=== PATIENT | female | born 1980 | race African-American/Black ===

== ENCOUNTER 2021-03-09 00:06 | Emergency (ER) | payer MEDICARE, MEDICAID ==
[~2021-03-09] VITALS: Ht 165.1 cm; Wt 101.0 kg
[~2021-03-09 00:06] MED LIST: (None)1 % OP; ACCUPRIL5 MG; AMOXICILLIN500 M2 PO; BACTRIM DS1 TAB OR; BACTRIM DS1 TAB PO; BIAXIN250 MG PO; CEPHALEXIN500 MG PO; COMBIVIR 1501 COMBO PO; EFFEXOR XR75 MG PO; EFFEXOR25 MG PO; FAMVIR500 MG PO; FLEXERIL PO; LEXAPRO5 MG OR; LORTAB 1010 MG PO; LORTAB 5 OR; LORTAB5 OR; LORTAB5 PO; LYRICA300 MG PO; LYRICA50 MG PO; NAPROSYN500 MG OR; NAPROSYN500 MG PO; NEURONTIN100 MG PO; NEXIUM20 M1 OR; NORCO1 TA1 PO; NORVIR100 MG PO; PERCOCET 5/325M1 TAB PO; PREZISTA800 MG PO; RISPERDAL M1 MG PO; RISPERDAL0.5 MG PO; RISPERDAL2 MG PO; RISPERDAL3 MG OR; ROCEPHIN 1 GM1 GM IV; SEROQUEL50 MG PO; SUSTIVA200 MG OR; TRUVADA PO; ULTRAM50 M1 OR; ULTRAM50 M1 PO; ULTRAM50 MG OR; VIBRAMYCIN100 MG PO; XANAX0.25 MG PO; ZOVIRAX51 EX; [UNRECOGNIZED DRUG - OTHER] OR
[2021-03-09 00:57] LABS: HEMATOCRIT 36.1 % (37.0-47.0); HEMOGLOBIN 12.8 g/dl (12.0-16.0); MEAN CELL VOLUME 92.8 fL CALC (80.0-100.0); MEAN CORPUSCULAR HGB 32.9 pG CALC (26.0-32.0); MEAN CORPUSCULAR HGB CONC 35.5 g/dL CAL (32.0-36.0); NEUT# 2.24 thou/uL (2.00-7.15); RED BLOOD COUNT 3.89 mill/uL (4.20-5.60); RED CELL DISTRI WIDTH 12.1 % (11.5-15.5)
[2021-03-09 01:12] LABS: ALKALINE PHOSPHATASE 58 u/l (38-126); ANION GAP 13 (6-22 (CALC)); BILIRUBIN, TOTAL 0.3 mg/dL (0.0-1.4); BUN 15 mg/dL (7-17); BUN/CREATININE RATIO 15 (12-20 (CALC)); CARBON DIOXIDE 24 mmol/l (22-30); CHLORIDE 103 mmol/l (95-108); GFR > 60 ML/MIN (>=60 (CALC)); GFR FOR AFR.AMER. > 60 ML/MIN (>=60 (CALC)); POTASSIUM 3.7 mmol/l (3.5-5.1); SGOT/AST 27 u/l (14-36); SODIUM 136 mmol/l (137-146); TOTAL PROTEIN 7.5 g/dL (6.3-8.2)
[2021-03-09 03:41] LABS: URINE BILIRUBIN - DIPSTICK NEGATIVE (NEGATIVE); URINE BLOOD DIPSTICK NEGATIVE (NEGATIVE); URINE COLOR YELLOW; URINE GLUCOSE - DIPSTICK NEGATIVE (NEGATIVE); URINE KETONE TRACE mg/dL (NEGATIVE); URINE LEUK ESTERASE NEGATIVE (NEGATIVE); URINE PH 5.5 (4.5-8.0); URINE PROTEIN - DIPSTICK NEGATIVE (NEG-TRACE); URINE SPECIFIC GRAVITY >=1.030; URINE UROBILINOGEN - DIPSTICK 0.2 E.U./dL (0.2)
[2021-03-09 03:51] LABS: URINE NITRITE - DIPSTICK NEGATIVE (Negative)
[2021-03-09 05:10] VITALS: BP 112/76
[2021-03-09] MEDS ORDERED: ZPAK PO (05:10)
[2021-03-09] MEDS ORDERED: ROBITUSSIN AC10 ML PO (05:14)
[2021-03-09] MEDS ORDERED: PROVENTIL HFA IN (05:14)
== END 2021-03-09 05:10 | disposition home or self-care (01) ==
LOC: ED 00:06
PROVIDERS: Emergency Medicine
DX: J40 Bronchitis, not specified as acute or chronic (principal); Z21 Asymptomatic human immunodeficiency virus [HIV] infection status; Z20.822 Contact with and (suspected) exposure to COVID-19
CPT/HCPCS: Q9967

== ENCOUNTER 2022-11-10 21:23 | Emergency (ER) | payer MEDICARE, MEDICAID ==
[~2022-11-10] VITALS: Ht 165.1 cm; Wt 96.0 kg
[~2022-11-10 21:23] MED LIST changes: +PROVENTIL HFA IN; +ROBITUSSIN AC10 ML PO; +ZPAK PO
[2022-11-10 23:25] LABS: ALBUMIN 4.4 g/dL (3.2-5.0); ALKALINE PHOSPHATASE 87 u/l (38-126); ANION GAP 14 (6-22 (CALC)); BUN 12 mg/dL (7-17); BUN/CREATININE RATIO 13 (12-20 (CALC)); CARBON DIOXIDE 23 mmol/l (22-30); CHLORIDE 103 mmol/l (95-108); CREATININE 0.9 mg/dL (0.5-1.0); GFR FOR AFR.AMER. > 60 ML/MIN (>=60 (CALC)); GFR OTHER RACES > 60 ML/MIN (>=60 (CALC)); LIPASE 31 u/l (23-300); POTASSIUM 3.5 mmol/l (3.5-5.1); SGOT/AST 27 u/l (14-36); SODIUM 136 mmol/l (137-146)
[2022-11-11] MEDS ORDERED: ZOFRAN4 MG/TAB PO (00:07)
[2022-11-11 00:14] LABS: BASO% 0.4 % (0-3); HEMATOCRIT 40.3 % (37.0-47.0); HEMOGLOBIN 14.1 g/dl (12.0-16.0); IMMATURE GRANULOCYTES 0.2 % (0.0-5.0); LYMPH% 30.3 % (15-41); MEAN CELL VOLUME 92.9 fL CALC (80.0-100.0); MEAN CORPUSCULAR HGB 32.5 pG CALC (26.0-32.0); MONO% 9.2 % (2-13); NEUT# 2.49 thou/uL (2.00-7.15); NEUT% 55.9 % (42-76); RED BLOOD COUNT 4.34 mill/uL (4.20-5.60); RED CELL DISTRI WIDTH 12.2 % (11.5-15.5)
[2022-11-11 00:17] VITALS: BP 131/86
== END 2022-11-11 00:20 | disposition home or self-care (01) ==
LOC: ED 21:23
PROVIDERS: Emergency Medicine
DX: R11.10 Vomiting, unspecified (principal); Z21 Asymptomatic human immunodeficiency virus [HIV] infection status
CPT/HCPCS: J2060

== ENCOUNTER 2024-02-21 00:47 | Emergency (ER) | payer MEDICARE ==
[~2024-02-21] VITALS: Ht 165.1 cm; Wt 104.0 kg
[~2024-02-21 00:47] MED LIST changes: +AMOX/K CLAV875 M1 PO; +LORTAB 5/3255 MG PO; +ZOFRAN4 MG/TAB PO
[2024-02-21] MEDS ORDERED: Acetaminophen 300 MG/Codeine 30 MG/COMBO PO ONE (01:05)
[2024-02-21] MEDS ORDERED: DICLOFENAC SODIUM 75 MG/TAB PO ONE (01:05)
[2024-02-21] MEDS ORDERED: AMOXICILLIN & POT CLAVULANATE 875 MG/TAB PO ONE (01:05)
[2024-02-21] MEDS ORDERED: AMOX/K CLAV875 M1 PO (01:06)
[2024-02-21 01:26] VITALS: BP 119/83
== END 2024-02-21 01:26 | disposition home or self-care (01) ==
LOC: ED 00:47
DX: J01.90 Acute sinusitis, unspecified (principal); H69.91 Unspecified Eustachian tube disorder, right ear; Z21 Asymptomatic human immunodeficiency virus [HIV] infection status; Z79.899 Other long term (current) drug therapy; Z72.0 Tobacco use

== ENCOUNTER 2024-07-19 19:33 | Emergency (ER) | payer MEDICARE ==
[~2024-07-19] VITALS: Ht 165.1 cm; Wt 105.0 kg
[2024-07-19 19:46] VITALS: BP 128/77
[2024-07-19 20:01] VITALS: BP 134/74
[2024-07-19] MEDS ORDERED: Pantoprazole Sodium 40 MG VIAL (Protonix) IV ONE (20:05)
[2024-07-19] MEDS ORDERED: ASPIRIN 81 MG/TAB PO ONE (20:05)
[2024-07-19] MEDS ORDERED: NITROGLYCERIN 0.4 MG/TAB SL ONE (20:05)
[2024-07-19 20:19] LABS: BASO% 0.6 % (0-3); EOS% 3.2 % (0-8); HEMATOCRIT 37.1 % (37.0-47.0); HEMOGLOBIN 13.1 g/dl (12.0-16.0); IMMATURE GRANULOCYTES 0.4 % (0.0-5.0); LYMPH% 36.1 % (15-41); MEAN CELL VOLUME 96.9 fL CALC (80.0-100.0); MEAN CORPUSCULAR HGB 34.2 pG CALC (26.0-32.0); MEAN CORPUSCULAR HGB CONC 35.3 g/dL CAL (32.0-36.0); MONO% 6.8 % (2-13); NEUT# 2.65 thou/uL (2.00-7.15); NEUT% 52.9 % (42-76); RED BLOOD COUNT 3.83 mill/uL (4.20-5.60); RED CELL DISTRI WIDTH 12.8 % (11.5-15.5)
[2024-07-19 20:30] LABS: ALBUMIN 4.1 g/dL (3.2-5.0); ALKALINE PHOSPHATASE 49 u/l (38-126); ANION GAP 11 (6-22 (CALC)); BUN 16 mg/dL (7-17); BUN/CREATININE RATIO 15 (12-20 (CALC)); CARBON DIOXIDE 24 mmol/l (22-30); CHLORIDE 104 mmol/l (95-108); CREATININE 1.1 mg/dL (0.5-1.0); ESTIMATED GFR 64 ML/MIN (>=90 (CALC)); LIPASE 76 u/l (23-300); POTASSIUM 3.9 mmol/l (3.5-5.1); SGOT/AST 22 u/l (14-36); SODIUM 136 mmol/l (137-146); TOTAL PROTEIN 7.4 g/dL (6.3-8.2)
[2024-07-19 20:31] VITALS: BP 127/79
[2024-07-19 20:33] LABS: BILIRUBIN, TOTAL 0.4 mg/dL (0.02-1.3)
[2024-07-19] MEDS ORDERED: PANTOPRAZOLE SODIUM Sesquihydr 40 MG/TAB PO ONE (20:45)
[2024-07-19 21:10] LABS: URINE BILIRUBIN - DIPSTICK Negative (NEGATIVE); URINE BLOOD DIPSTICK Negative (NEGATIVE); URINE CLARITY Clear; URINE COLOR Yellow; URINE GLUCOSE - DIPSTICK Negative (NEGATIVE); URINE KETONE Negative (NEGATIVE); URINE LEUK ESTERASE Negative (Negative); URINE NITRITE - DIPSTICK Negative (Negative); URINE PH 5.5 (4.5-8.0); URINE PROTEIN - DIPSTICK Negative (NEG-TRACE); URINE UROBILINOGEN - DIPSTICK 0.2 E.U./dL (0.2)
[2024-07-19 21:31] VITALS: BP 125/75
[2024-07-19 22:01] VITALS: BP 109/63
[2024-07-19 22:06] VITALS: BP 109/63
== END 2024-07-19 22:06 | disposition home or self-care (01) ==
LOC: ED 19:33
PROVIDERS: Emergency Medicine
DX: R07.89 Other chest pain (principal); Z21 Asymptomatic human immunodeficiency virus [HIV] infection status; Z72.0 Tobacco use
CPT/HCPCS: J2470

== ENCOUNTER 2024-11-06 17:52 | Emergency (ER) | payer MEDICARE ==
[~2024-11-06] VITALS: Ht 165.1 cm; Wt 107.0 kg
[2024-11-06] MEDS ORDERED: KETOROLAC TROMETHAMINE 15 MG/ML SDV IV ONE (18:20)
[2024-11-06] MEDS ORDERED: DIATRIZOATE MEGLUMINE & SODIUM 30 ML/BTL PO ONE (18:20)
[2024-11-06] MEDS ORDERED: ONDANSETRON HCl 4 MG/2 ML SDV IV ONE (18:25)
[2024-11-06 19:31] LABS: BASO% 0.2 % (0-3); EOS% 2.6 % (0-8); HEMATOCRIT 37.6 % (37.0-47.0); HEMOGLOBIN 13.1 g/dl (12.0-16.0); IMMATURE GRANULOCYTES 0.2 % (0.0-5.0); LYMPH% 40.3 % (15-41); MEAN CELL VOLUME 95.2 fL CALC (80.0-100.0); MEAN CORPUSCULAR HGB 33.2 pG CALC (26.0-32.0); MEAN CORPUSCULAR HGB CONC 34.8 g/dL CAL (32.0-36.0); MONO% 12.5 % (2-13); NEUT# 1.84 thou/uL (2.00-7.15); NEUT% 44.2 % (42-76); RED BLOOD COUNT 3.95 mill/uL (4.20-5.60); RED CELL DISTRI WIDTH 12.4 % (11.5-15.5)
[2024-11-06 19:42] LABS: ALBUMIN 3.7 g/dL (3.2-5.0); BILIRUBIN, TOTAL 0.4 mg/dL (0.02-1.3); CREATININE 0.7 mg/dL (0.5-1.0); POTASSIUM 3.7 mmol/l (3.5-5.1); TOTAL PROTEIN 7.1 g/dL (6.3-8.2)
[2024-11-06 19:46] LABS: URINE BLOOD DIPSTICK Negative (NEGATIVE); URINE GLUCOSE - DIPSTICK Negative (NEGATIVE); URINE KETONE 15 mg/dL (NEGATIVE); URINE LEUK ESTERASE Negative (NEGATIVE); URINE NITRITE - DIPSTICK Negative (Negative); URINE PH 5.5 (4.5-8.0); URINE PROTEIN - DIPSTICK 30 mg/dL (NEG-TRACE); URINE SPECIFIC GRAVITY >=1.030
[2024-11-06 19:55] LABS: URINE COLOR Dark yellow; URINE MUCUS FEW hpf (NONE-FEW); URINE SQUAMOUS EPITHELIAL CELL MANY EPI/hpf (0-FEW)
[2024-11-06] MEDS ORDERED: DICYCLOMINE HCL20 MG PO (20:58)
[2024-11-06 21:17] VITALS: BP 123/71
== END 2024-11-06 21:17 | disposition home or self-care (01) ==
LOC: ED 17:52
PROVIDERS: Family Medicine
DX: R10.11 Right upper quadrant pain (principal); R10.31 Right lower quadrant pain; R11.0 Nausea; Z21 Asymptomatic human immunodeficiency virus [HIV] infection status; Z79.899 Other long term (current) drug therapy; Z72.0 Tobacco use
CPT/HCPCS: J1885; J2405; Q9967